=== PATIENT | male | born 1955 | race Two or more races ===

== ENCOUNTER 2023-10-14 09:23 | Outpatient (AMB) | payer MEDICARE, OTHER, SELFPAY ==
--- NOTE | 2023-10-14 09:33 | A.OFFVIS_ITS ---
Intake Intake Visit Reasons: bladder mass Intake Note: NEW Patient presents today to established treatment for Bladder Mass: Meds- None Allergies to Antibiotic- No Known Allergies Blood Thinner- None Disposable Uro-G Cystoscope Cannula: Lot: [id number] Exp: 01/03/2025 Belt Changer Required: No Accompanied by: Significant Other Allergies No Known Allergies Allergy (Verified 10/14/23 09:54) HPI HPI Comments History of Present Illness Details Marc is a 68-year-old male he is referred due to gross hematuria. The patient states that he saw blood in his urine about a year ago but it went away. He saw blood again and was seen by his primary care physician, an ultrasound of the kidney and bladder was performed I have reviewed the results proximally 4 cm peripherally calcified bladder mass. He was referred for further evaluation. The patient denies past nicotine use. I have discussed office cystoscopy today consent obtained Cystoscopy findings: Bladder mass with necrotic changes noted. [facility] Medical History (Updated 10/16/23 @ 16:09 by Bull Gonzales MD) History of retinitis pigmentosa Hyperplastic colon polyp Bladder mass Surgical History (Updated 10/14/23 @ 09:53 by FRANCESCA Hope) Hx of colonoscopy Family History (Updated 10/14/23 @ 09:49 by FRANCESCA Hope) Father Family history of prostate cancer Lung cancer Mother No problems noted. Social History (Updated 10/14/23 @ 09:49 by FRANCESCA Hope) Alcohol intake: current Alcohol intake frequency: holidays/special occasions only Patient Tobacco Use Status: Never used Tobacco Review of Systems Const All systems reviewed & are unremarkable except as noted in HPI and below Reports no additional complaints Eyes Reports no additional complaints ENT Reports no additional complaints Card Denies dyspnea Resp Denies cough and Denies dyspnea GI Reports no additional complaints Musc Reports no additional complaints Skin/Breast Denies rash and Denies unusual bruising Neuro Reports no additional complaints Psych Reports no additional complaints Endo Reports no additional complaints Wilmer/Lymph Reports no additional complaints Aller/Immun Reports no additional complaints Physical Exam Const General: healthy appearing, no acute distress and well developed Orientation/consciousness: patient oriented x3 HEENT Head: Yes normocephalic and Yes atraumatic Eyes Conjunctivae: conjunctivae normal Neck Neck: Yes normal visual inspection Chest Chest palpation & inspection: normal inspection of the chest Resp Effort & Inspection: normal respiratory effort Cardio Rate: regular rate GI Inspection: Yes normal to inspection Palpation (GI): Soft to palpation Penis: normal penis Scrotum: scrotum normal Skin General skin exam: no rashes or lesions noted Neuro General: patient oriented x3 Extrem General: No pedal edema Psych Appearance: grossly normal Affect: normal affect Office Procedures Cystoscopy Consent Discussed risk and benefit or proposed procedure with the patient. Information consent for procedure given to the patient. Discussed technical aspects, risks, benefits and alternatives in full. Addressed all of the patient's questions and concerns regarding the procedure. The patient demonstrated knowledge and understanding. They wish to proceed with this procedure. Preparation The patient was prepped in the usual manner. A high school mathematics teacher was present and in the room. Genitalia was prepped with betadine solution in a sterile manner. Lidocaine Jelly 2% was placed into the urethra and 16Fr flexible Olympus cystoscope was inserted into the meatus after adequate lubrication. Procedure Time out per protocol performed. Bladder Inspection Bladder Inspection: The bladder was inspected in its entirety with utilization retroflexion displaying: Tumor(s): 3-5 cm necrotic appearing bladder tumor Trabeculation: N/A Mucosal Erthema: Significant mucosal erythema not visualized at the time of this cystoscopy Orifices: normal shape and position Urethra: normal Cystoscopy findings: prostatic urethra non obstructive, bulbous urethra WNL, 3-5 cm necrotic appearing bladder tumor [id number] DISPOSABLE SCOPE URO-G FLEXIBLE SCOPE Procedure code (CPT) selection complete Office Meds lidocaine HCl 2 % mucosal jelly in applicator Performing Provider: Bull Gonzales MD [facility] Administered by: Rupert Laureano LPN on 10/14/23 10:11 Dose Route Admin Location Dispensed Lot Number Expiration Date [facility] Assistant Account Manager 10 mL intra-urethral 20 mL naproxen 500 mg tablet Performing Provider: Bull Gonzales MD Performing Location[facility] Administered by: Rupert Laureano LPN on 10/14/23 10:11 Dose Route Admin Location Dispensed Lot Number Expiration Date NDC Assistant Account Manager 500 mg PO 1 tab ciprofloxacin HCl 500 mg tablet Performing Provider: Bull Gonzales MD Performing Location: [facility] Administered by: Rupert Laureano LPN on 10/14/23 10:11 Dose Route Admin Location Dispensed Lot Number Expiration Date NDC Assistant Account Manager 500 mg PO 1 tab Results AMB Urinalysis, Automated UA Leukoctes 0 Chau/uL Last Edit by FRANCESCA Hope on 10/14/23 09:48 UA Nitrite Negative Last Edit by FRANCESCA Hope on 10/14/23 09:48 UA Urobilinogen 0.2 mg/dL Last Edit by FRANCESCA Hope on 10/14/23 09:4 8 UA Protein 30 mg/dL Last Edit by FRANCESCA Hope on 10/14/23 09:48 1+ Doe Ritchie 10/14/23 09:48 UA pH 6.0 Last Edit by FRANCESCA Hope on 10/14/23 09:48 UA Blood 200 Sudeep/uL Last Edit by FRANCESCA Hope on 10/14/23 09:48 3+ Doe Ritchie 10/14/23 09:48 UA Specific [place] 1.020 Last Edit by FRANCESCA Hope on 10/14/23 09: 48 UA Ketone Negative Last Edit by FRANCESCA Hope on 10/14/23 09:48 UA Bilirubin 0 mg/dL Last Edit by FRANCESCA Hope on 10/14/23 09:48 UA Glucose 0 mg/dL Last Edit by FRANCESCA Hope on 10/14/23 09:48 Results Reviewed Results Reviewed: Laboratory Last Values Urine pH (Auto) 6.0 10/14/23 09:45 Specific [place] (Auto) 1.020 10/14/23 09:45 Urine Protein (Auto) 30 mg/dL 10/14/23 09:45 Glucose (UA)(Auto) 0 mg/dL 10/14/23 09:45 Urine Ketones (Auto) Negative 10/14/23 09:45 Urine Blood (Auto) 200 Sudeep/uL 10/14/23 09:45 Urine Nitrite (Auto) Negative 10/14/23 09:45 Urine Bilirubin (Auto) 0 mg/dL 10/14/23 09:45 Urine Urobilinogen (Auto) 0.2 mg/dL 10/14/23 09:45 Leukocyte Esterase (Auto) 0 Chau/uL 10/14/23 09:45 Assessment & Plan Assessment & Plan (1) Bladder mass: Code(s): N32.89 - Other specified disorders of bladder (2) Gross hematuria: Code(s): R31.0 - Gross hematuria Plan CT abdomen and pelvis with and without IV contrast Urine for cytology Cystoscopy TURBT, random bladder biopsies. Orders: Orders Urine Cytology 10/14/23 R31.9 - Hematuria, unspecified AMB Urinalysis Automated 10/14/23 Z13.9 - Encounter for screening, unspecified AMB Cystoscopy 10/14/23 N32.89 - Other specified disorders of bladder CT abdomen pelvis wo/w IV con 10/14/23 N32.89 - Other specified disorders of bladder Patient Instructions: The patient had an opportunity to ask questions regarding treatment plan. All questions were answered. Imaging, Laboratory studies and physical exam results were discussed and reviewed in detail. No major barriers to understanding were identified. The patient expressed understanding and agreement with the above tr eatment plan. The patient is aware they should contact our office by phone for worsening of their current condition or the appearance of new symptoms. Compliance is encouraged with any medications and followup testing that is ordered. It is a privilege to be allowed the opportunity to participate in the urologic care of your patient. If you have any questions or concerns regarding treatment for the above conditions please do not hesitate to contact me. The office telephone contact is [phone]. This note is constructed in part using voice recognition software. While every effort has been made to ensure accuracy sugar drier errors may have been included. Yours sincerely, Bull Gonzales MD Coding Level of Care Code New Pt Level 4 (45881) Diagnoses Bladder mass N32.89 Gross hematuria R31.0 CPT Codes Cystoscopy - CPT: 88421-[id number] ([id number])
== END 2023-10-14 10:50 | disposition home or self-care (01) ==
PROVIDERS: PCP Nurse Practitioner Family; Visit Provider Urology
DX: N32.89 Other specified disorders of bladder (principal); Z13.9 Encounter for screening, unspecified
CPT/HCPCS: 52000; 99204

== ENCOUNTER 2023-10-14 09:23 | Outpatient (REF) | payer MEDICARE, OTHER, SELFPAY ==
[2023-10-14 16:19] LABS: Urine Cytology See Pathology rpt
== END 2023-10-14 09:24 | disposition home or self-care (01) ==
LOC: HO.LAB 09:23
PROVIDERS: PCP Nurse Practitioner Family; Visit Provider Urology
DX: R31.0 Gross hematuria (principal); N32.89 Other specified disorders of bladder
CPT/HCPCS: 52000; 81003; 88112; 99202

== ENCOUNTER 2023-10-25 13:18 | Outpatient (REF) | payer MEDICARE, OTHER, SELFPAY ==
--- NOTE | ~2023-10-25 | CT_ITS ---
EXAMINATION: CT ABDOMEN AND PELVIS WITHOUT AND WITH CONTRAST CLINICAL INFORMATION: Bladder mass. COMPARISON: None available. TECHNIQUE: Multidetector volumetric imaging was performed of the abdomen and pelvis before and after the IV administration of 85 mL of Omnipaque 350 intravenous contrast. Sagittal and coronal reformatted images were obtained on the technologist's workstation. This CT examination was performed using dose optimization techniques as appropriate, variously including the following: *Automated exposure control *Adjustment of mA and/or kV according to patient size (this includes techniques or standardized protocols for targeted exams where dose is matched to indication/reason for exam; i.e. extremities or head) *Use of iterative reconstruction technique DLP: 1193 mGy-cm FINDINGS: LUNG BASES: No pleural or pericardial effusion. LIVER, GALLBLADDER, AND BILIARY TREE: The liver is normal in size and contour. No focal hepatic lesion or biliary ductal dilatation is present. The gallbladder is unremarkable with no evidence of radiopaque gallstones, gallbladder wall thickening, or obvious pericholecystic inflammatory changes. PANCREAS: No ductal dilatation. SPLEEN: Not enlarged. ADRENAL GLANDS: No adrenal mass. KIDNEYS AND URETERS: The kidneys are symmetric in size and enhancement. No hydronephrosis. No perinephric stranding. BLADDER: Peripherally calcified solid enhancing mass measuring 4.2 x 3.2 x 3.1 cm arising from the right lateral bladder wall. Right lateral bladder wall thickening. GASTROINTESTINAL TRACT: Small and large bowel loops are of normal caliber. No small bowel obstruction. Appendix is within normal limits. ABDOMINAL WALL: Bilateral fat-containing inguinal hernias. LYMPH NODES: No bulky lymphadenopathy. VASCULAR: Unremarkable PELVIC VISCERA: Prostate gland is mildly enlarged. There is slight asymmetric enlargement of the left seminal vesicle. OSSEOUS STRUCTURES: No destructive bone lesions. CT/CT abdomen pelvis wo/w IV con IMPRESSION: 4.2 x 3.2 x 3.1 cm peripherally calcified solid enhancing bladder mass arising from the right lateral bladder wall. There is right lateral bladder wall thickening. No hydronephrosis.
[2023-10-25] MEDS: iohexoL 350 MG/ML 75 ML INFUS..BTL 85 ML IV (14:15)
[2023-10-26 08:22] LABS: Creatinine POC 0.7 mg/dL (0.5-1.4); GFR POC > 60
== END 2023-10-25 13:19 | disposition home or self-care (01) ==
LOC: HO.CT 13:18
PROVIDERS: Visit Provider Urology
DX: N32.89 Other specified disorders of bladder (principal)
CPT/HCPCS: 74178; 82565; Q9967

== ENCOUNTER 2023-10-27 14:44 | Outpatient (AMB) | payer MEDICARE, OTHER, SELFPAY ==
--- NOTE | 2023-10-27 14:45 | A.OFFVIS_ITS ---
Intake Intake Visit Reasons: 3w/CT results Intake Note: Patient presents today via phone for CT scan results: Meds- None Allergies to Antibiotic- No Known Allergies Blood Thinner- None Entertainment Musician Required: No Accompanied by: Self / Same As Patient Allergies No Known Allergies Allergy (Verified 10/27/23 14:46) HPI HPI Comments History of Present Illness Details 10/27/23-- Telehealth visit to discuss CT scan results. Video attempted. Marc was seen last on 10/14/23 for cystoscopy, large bladder tumor was visualized. I have reviewed imaging, Kidneys WNL, no new findings, no hydronephrosis. urine cytology sent on 10/14/23 - path - results- atypical cells. Cont with plan for cysto/TURBT. Review of chart 10/14/23--Marc is a 68-year-old male he i s referred due to gross hematuria. The patient states that he saw blood in his urine about a year ago but it went away. He saw blood again and was seen by his primary care physician, an ultrasound of the kidney and bladder was performed I have reviewed the results proximally 4 cm peripherally calcified bladder mass. He was referred for further evaluation. The patient denies past nicotine use. I have discussed office cystoscopy today consent obtained Cystoscopy findings: Bladder mass with necrotic changes noted. [facility] Medical History (Updated 11/05/23 @ 12:01 by Angy Goyal RN) Osteoarthritis History of retinitis pigmentosa Hyperplastic colon polyp Bladder mass Surgical History (Updated 10/14/23 @ 09:53 by FRANCESCA Hope) Hx of colonoscopy Family History (Updated 10/14/23 @ 09:49 by FRANCESCA Hope) Father Family history of prostate cancer Lung cancer Mother No problems noted. Social History (Updated 11/05/23 @ 12:00 by Angy Goyal RN) Alcohol intake: current Alcohol intake frequency: holidays/special occasions only Patient Tobacco Use Status: Never used Tobacco Use of substances other than those prescribed or required for medical reasons: No Review of Systems Const All systems reviewed & are unremarkable except as noted in HPI and below Reports no additional complaints Eyes Reports no additional complaints ENT Reports no additional complaints Card Denies dyspnea Resp Denies cough and Denies dyspnea GI Reports no additional complaints Musc Reports no additional complaints Skin/Breast Denies rash and Denies unusual bruising Neuro Reports no additional complaints Psych Reports no additional complaints Endo Reports no additional complaints Wilmer/Lymph Reports no additional complaints Aller/Immun Reports no additional complaints Results Reviewed Results Reviewed: Date of Service: 10/25/23 EXAMINATION: CT ABDOMEN AND PELVIS WITHOUT AND WITH CONTRAST CLINICAL INFORMATION: Bladder mass. COMPARISON: None available. TECHNIQUE: Multidetector volumetric imaging was performed of the abdomen and pelvis before and after the IV administration of 85 mL of Omnipaque 350 intravenous contrast. Sagittal and coronal reformatted images were obtained on the technologist's workstation. This CT examination was performed using dose optimization techniques as appropriate, variously including the following: *Automated exposure control *Adjustment of mA and/or kV according to patient size (this includes techniques or standardized protocols for targeted exams where dose is matched to indication/reason for exam; i.e. extremities or head) *Use of iterative reconstruction technique DLP: 1193 mGy-cm FINDINGS: LUNG BASES: No pleural or pericardial effusion. LIVER, GALLBLADDER, AND BILIARY TREE: The liver is normal in size and contour. No focal hepatic lesion or biliary ductal dilatation is present. The gallbladder is unremarkable with no evidence of radiopaque gallstones, gallbladder wall thickening, or obvious pericholecystic inflammatory changes. PANCREAS: No ductal dilatation. SPLEEN: Not enlarged. ADRENAL GLANDS: No adrenal mass. KIDNEYS AND URETERS: The kidneys are symmetric in size and enhancement. No hydronephrosis. No perinephric stranding. BLADDER: Peripherally calcified solid enhancing mass measuring 4.2 x 3.2 x 3.1 cm arising from the right lateral bladder wall. Right lateral bladder wall thickening. GASTROINTESTINAL TRACT: Small and large bowel loops are of normal caliber. No small bowel obstruction. Appendix is within normal limits. ABDOMINAL WALL: Bilateral fat-containing inguinal hernias. LYMPH NODES: No bulky lymphadenopathy. VASCULAR: Unremarkable PELVIC VISCERA: Prostate gland is mildly enlarged. There is slight asymmetric enlargement of the left seminal vesicle. OSSEOUS STRUCTURES: No destructive bone lesions. IMPRESSION: 4.2 x 3.2 x 3.1 cm peripherally calcified solid enhancing bladder mass arising from the right lateral bladder wall. There is right lateral bladder wall thickening. No hydronephrosis. Assessment & Plan Assessment & Plan (1) Bladder mass: Code(s): N32.89 - Other specified disorders of bladder (2) Gross hematuria: Code(s): R31.0 - Gross hematuria Plan Cystoscopy TURBT, random bladder biopsies. Patient Instructions: The patient had an opportunity to ask questions regarding treatment plan. All questions were answered. Imaging, Laboratory studies and physical exam results were discussed and reviewed in detail. No major barriers to understanding were identified. The patient expressed understanding and agreement with the above treatment plan. The patient is aware they should contact our office by phone for worsening of their current condition or the appearance of new symptoms. Compliance is encouraged with any medications and followup testing that is ordered. It is a privilege to be allowed the opportunity to participate in the urologic care of your patient. If you have any questions or concerns regarding treatment for the above conditions please do not hesitate to contact me. The office telephone contact is [phone]. This note is constructed in part using voice recognition software. While every effort has been made to ensure accuracy oil and gas superintendent errors may have been included. Yours sincerely, Bull Gonzales MD Telehealth Telehealth Location of provider rendering services: practice address Location of patient: address on file Patient Identification confirmed using: Name, : Yes Telehealth method: voice only Patient verbally consented to treatment: Yes Patient verbally consented to billing insurance company: Yes Patient informed of any privacy concerns related to visit: Yes Minutes spent on Phone/Video with Pt.: 15 Coding Level of Care Code Tele Est Pt Level 3 (55906) Diagnoses Bladder mass N32.89 Gross hematuria R31.0
== END 2023-10-27 15:18 | disposition home or self-care (01) ==
LOC: HO.HUSH 14:44
PROVIDERS: PCP Nurse Practitioner Family; Visit Provider Urology
DX: N32.89 Other specified disorders of bladder (principal); R31.0 Gross hematuria
CPT/HCPCS: 99442

== ENCOUNTER → 2023-10-27 14:44 | Outpatient (BNVA) | payer MEDICARE, OTHER, SELFPAY | PROVIDERS: PCP Nurse Practitioner Family; Visit Provider Urology ==

== ENCOUNTER 2023-11-09 05:55 | Day surgery (SDC) | payer MEDICARE, OTHER, SELFPAY ==
[2023-11-05 12:00] VITALS: BMI 34.2
--- NOTE | 2023-11-08 09:02 | P.CONAN_ITS ---
Documented by User: Marisela Campbell NP 11/08/23 09:02 HPI - Anesthesia Eval Consult details Narrative: 68yo M for TUR Bladder Tumor PMFSH Active Problems Active Problems: All Active Problems (Updated 11/05/23 @ 12:01 by Angy Goyal RN) Gross hematuria (Acute) Bladder mass (Acute) Past Medical History Medical History Osteoarthritis History of retinitis pigmentosa Hyperplastic colon polyp Bladder mass Family History Family History Father Family history of prostate cancer Lung cancer Mother No problems noted. Surgical History Surgical History Hx of colonoscopy Social History Social History Alcohol intake: current Alcohol intake frequency: holidays/special occasions only Patient Tobacco Use Status: Never used Tobacco Are you DNR?: No Advance Directives: No Advance Directives Information Provided: Yes Nutrition Risks: No Nutritional Risk Meds Allergies Allergy/AdvReac Type Severity Reaction Status Date / Time No Known Allergies Allergy Verified 11/09/23 06:10 Home Medications Medication Instructions Recorded Confirmed Last Taken Type multivitamin 1 tab PO DAILY 10/14/23 11/05/23 Unknown History vitamin A 2,400 mcg capsule 2,400 mcg PO DAILY 10/14/23 11/05/23 Unknown History Exam Height,Weight and Vital Signs: Height 5 ft 5.25 in Weight 94.064 kg Assessment and Plan Assessment Anesthesia Assessment: Chart Reviewed Documented by User: Adeola Vigil MD 11/09/23 07:34 PMFSH Past Medical History Medical History Osteoarthritis History of retinitis pigmentosa Hyperplastic colon polyp Bladder mass Family History Family History Father Family history of prostate cancer Lung cancer Mother No problems noted. Family history of problems with anesthesia: No Surgical History Surgical History Hx of colonoscopy History of Problems with Anesthesia: No Social History Social History Alcohol intake: current Alcohol intake frequency: holidays/special occasions only Patient Tobacco Use Status: Never used Tobacco Are you DNR?: No Advance Directives: No Advance Directives Information Provided: Yes Nutrition Risks: No Nutritional Risk Meds Allergies Allergy/AdvReac Type Severity Reaction Status Date / Time No Known Allergies Allergy Verified 11/09/23 06:10 Home Medications Medication Instructions Recorded Confirmed Last Taken Type multivitamin 1 tab PO DAILY 10/14/23 11/05/23 Unknown History vitamin A 2,400 mcg capsule 2,400 mcg PO DAILY 10/14/23 11/05/23 Unknown History Exam Airway Mallampati Class: III TM Dist: >3cm Neck ROM: Limited Heart: rrrr Lungs: cta Assessment and Plan Assessment Anesthesia Assessment: Anesthesia Plan Discussed Final Anesthetic Review Family History of Problems with Anesthesia: No History of Problems with Anesthesia: No NPO: Yes ASA Class: II Final Preanesthetic Review: No Changes in Pt Med Stat, Meds/Allgs Chart Revie wed, Consent Obtained/Reviewed and Anes Risks/Benef Reviewed Patient Risk: Low Procedure Risk: Low Anesthetic Plan Anesthetic Plan: GA Disposition: Standard PACU
[2023-11-09] VITALS (8 sets, daily range): BP systolic 109–150; BP diastolic 58–84; PULSE 53–70; RESP 16–18; TEMP 36.2–36.7; O2SAT 93–100; BMI 34.5
[2023-11-09] MEDS: Lactated Ringers 1,000 ML 100 ML IVCONT (06:12)
--- NOTE | 2023-11-09 07:17 | MHC.SHP ---
Pre-Procedural Eval Section A - 24 Hr Update-Section A only Date of Service: 11/09/23 The patient is an INPATIENT: No The patient has been examined within 24 hours of the surgical procedure. The History & Physical has been completed within 30 days and I have reviewed it.: Yes Section B - Complete if H&P > 30 days Chief Complaint: Other specified disorders of bladder Allergies: Allergies Allergy/AdvReac Type Severity Reaction Status Date / Time No Known Allergies Allergy Verified 11/09/23 06:10 Plan Diagnosis/Plan: Unchanged I have reviewed the history and physical and performed a pertinent physical examination on my patient. No changes have occurred unless specified. Cysto/TURBT. Discussed risks to include but not limited to, blood in the urine, burning with urination, urgency. Time Spent With Patient Time: Total time managing care of this patient today ____ minutes.
--- NOTE | 2023-11-09 09:25 | P.OP_ITS ---
Operative Note Operative Note Date of Service: 11/09/23 Narrative: PREOP DIAGNOSIS: Bladder tumor POSTOP DIAGNOSIS: Bladder tumor PROCEDURE: CYSTOSCOPY TRANSURETHRAL RESECTION OF BLADDER TUMOR, FULGURATION Anesthesia: General Surgeon Dr. Bull Gonzales Findings: Necrotic bladder tumor >5 cm, right lateral wall Details of procedure: The patient was brought into the operating room placed on the OR table in supine position. 2 g of Ancef IV. General anesthesia was administered. The patient was repositioned into lithotomy position, prepped and draped in the usual sterile fashion. Time-out was done per protocol. 2 urojet placed. The 22 Japanese cystoscope was passed transurethrally into the bladder. The bulbous urethra was within normal limits the prostatic urethra was nonobstructive. There was a large necrotic bladder tumor right lateral wall towards the dome on the right side. Random bladder biopsies were done at the posterior wall and left lateral wall. The cystoscope was removed. The 24 Japanese resectoscope was passed transurethrally into the bladder. Using the loop working element the biopsied areas were cauterized. The loop working instrument was used to resect the bladder tumor on the right side, muscle was visualized without evidence of perforation, the loop was also used to fulgurate the base of the bladder tumor. Once there was good hemostasis the resectoscope was removed. An [address] catheter was passed without difficulty. 20 mL sterile water placed into the balloon. The patient was brought out of anesthesia and taken to recovery in stable condition. Complications: None Drains: [address] 30 cc balloon
[2023-11-09] MEDS: Phenazopyridine HCL 200 MG TABLET PO (09:40)
== END 2023-11-09 10:58 | disposition home or self-care (01) ==
PROVIDERS: PCP Nurse Practitioner Family; Visit Provider Urology
PROC: 0TBB8ZZ Excision of Bladder, Via Natural or Artificial Opening Endoscopic (ICD-10-PCS; CPT 52235; principal; 2023-11-09 07:30)
DX: C67.2 Malignant neoplasm of lateral wall of bladder (principal); R31.0 Gross hematuria; Z79.899 Other long term (current) drug therapy
CPT/HCPCS: 52235; 88305; 88307; J0131; J0690; J2704; J3010

== ENCOUNTER → 2023-11-09 05:55 | Outpatient (BNV) | payer MEDICARE, OTHER, SELFPAY | PROVIDERS: PCP Nurse Practitioner Family; Visit Provider Urology | DX: N32.89 Other specified disorders of bladder (principal) | CPT/HCPCS: 52235 ==

== ENCOUNTER → 2023-11-12 09:13 | Outpatient (BNVA) | payer MEDICARE, OTHER, SELFPAY | PROVIDERS: PCP Nurse Practitioner Family; Visit Provider Urology ==

== ENCOUNTER 2023-11-26 14:13 | Outpatient (AMB) | payer MEDICARE, OTHER, SELFPAY ==
--- NOTE | 2023-11-26 14:16 | A.OFFVIS_ITS ---
Intake Intake Visit Reasons: TURBT follow up Intake Note: Patient presents today for TURBT follow-up: Meds- Azo Allergies to Antibiotic- No Known Allergies Blood Thinner- None Palliative Medicine Physician Required: No Accompanied by: Significant Other Allergies No Known Allergies Allergy (Verified 11/26/23 14:21) HPI HPI Comments History of Present Illness Details 11/26/2023-- Marc is here with his [facility] post TURBT 11/09/2023. He states he is doing well. He is voiding without difficulty. I have reviewed the pathology results. 11/09/23---Path results: Bladder, right lateral wall towards dome, transurethral resection: - High-grade urothelial carcinoma, invasive into lamina propria. - Muscularis propria present. Discussed high-grade urothelial carcinoma fire chance for recurrence. I have discussed further evaluation with PET-CT. Discussed options for bladder installations. [place] [facility] Will send a referral to Dr. Smith at [facility] to see if BCG is available there otherwise will arrange for alternative chemo therapy bladder instillation. Discussed that in the case of proceeding with radical cystectomy that Dr. Smith would be able to further discuss this treatment management with them. Review of chart: 10/27/23-- Telehealth visit to discuss CT scan results. Video attempted. Marc was seen last on 10/14/23 for cystoscopy, large bladder tumor was visualized. I have reviewed imaging, Kidneys WNL, no new findings, no hydronephrosis. urine cytology sent on 10/14/23 - path - results- atypical cells. Cont with plan for cysto/TURBT. 10/14/23--Marc is a 68-year-old male he i s referred due to gross hematuria. The patient states that he saw blood in his urine about a year ago but it went away. He saw blood again and was seen by his primary care physician, an ultrasound of the kidney and bladder was performed I have reviewed the results proximally 4 cm peripherally calcified bladder mass. He was referred for further evaluation. The patient denies past nicotine use. I have discussed office cystoscopy today consent obtained Cystoscopy findings: Bladder mass with necrotic changes noted. 11/26/2023--see discussion above. [facility] Medical History Osteoarthritis History of retinitis pigmentosa Hyperplastic colon polyp Bladder mass Surgical History Hx of colonoscopy Family History Father Family history of prostate cancer Lung cancer Mother No problems noted. Social History Alcohol intake: current Alcohol intake frequency: holidays/special occasions only Patient Tobacco Use Status: Never used Tobacco Review of Systems Const All systems reviewed & are unremarkable except as noted in HPI and below Reports no additional complaints Eyes Reports no additional complaints ENT Reports no additional complaints Card Reports no additional complaints Resp Reports no additional complaints GI Reports no additional complaints Reports as per HPI Musc Reports no additional complaints Skin/Breast Reports system reviewed and no additional complaints, except as documented Neuro Reports no additional complaints Psych Reports no additional complaints Endo Reports no additional complaints Wilmer/Lymph Reports no additional complaints Aller/Immun Reports no additional complaints Results AMB Urinalysis, Automated UA Leukoctes 15 Chau/uL Last Edit by FRANCESCA Hope on 11/26/23 14:27 UA Nitrite Negative Last Edit by FRANCESCA Hope on 11/26/23 14:27 UA Urobilinogen 0.2 mg/dL Last Edit by FRANCESCA Hope on 11/26/23 14:2 7 UA Protein 15 mg/dL Last Edit by FRANCESCA Hope on 11/26/23 14:27 UA pH 6.0 Last Edit by FRANCESCA Hope on 11/26/23 14:27 UA Blood 25 Sudeep/uL Last Edit by FRANCESCA Hope on 11/26/23 14:27 1+ Doe Ritchie 11/26/23 14:27 UA Specific [place] 1.020 Last Edit by FRANCESCA Hope on 11/26/23 14: 27 UA Ketone Negative Last Edit by FRANCESCA Hope on 11/26/23 14:27 UA Bilirubin 0 mg/dL Last Edit by FRANCESCA Hope on 11/26/23 14:27 UA Glucose 0 mg/dL Last Edit by FRANCESCA Hope on 11/26/23 14:27 Results Reviewed Results Reviewed: Laboratory Last Values Urine pH (Auto) 6.0 11/26/23 14:16 Specific [place] (Auto) 1.020 11/26/23 14:16 Urine Protein (Auto) 15 mg/dL 11/26/23 14:16 Glucose (UA)(Auto) 0 mg/dL 11/26/23 14:16 Urine Ketones (Auto) Negative 11/26/23 14:16 Urine Blood (Auto) 25 Sudeep/uL 11/26/23 14:16 Urine Nitrite (Auto) Negative 11/26/23 14:16 Urine Bilirubin (Auto) 0 mg/dL 11/26/23 14:16 Urine Urobilinogen (Auto) 0.2 mg/dL 11/26/23 14:16 Leukocyte Esterase (Auto) 15 Chau/uL 11/26/23 14:16 Collected: 11/09/23 Location: [facility] Received: 11/09/23 Diagnosis A. Bladder, posterior wall, biopsy: Benign urothelial mucosa; muscularis propria present. B. Bladder, left lateral wall, biopsy: Benign urothelial mucosa; muscularis propria present. C. Bladder, right lateral wall towards dome, transurethral resection: - High-grade urothelial carcinoma, invasive into lamina propria. - Muscularis propria present. Bladder, transurethral resection/biopsy Procedure: Transurethral resection Tumor site: Right lateral wall towards dome Histologic type: Urothelial carcinoma Histologic grade: High-grade Muscularis propria: Present Extent of invasion: Lamina propria invasion Lymphovascular invasion: Not identified Date of Service: 10/25/23 EXAMINATION: CT ABDOMEN AND PELVIS WITHOUT AND WITH CONTRAST CLINICAL INFORMATION: Bladder mass. COMPARISON: None available. TECHNIQUE: Multidetector volumetric imaging was performed of the abdomen and pelvis before and after the IV administration of 85 mL of Omnipaque 350 intravenous contrast. Sagittal and coronal reformatted images were obtained on the technologist's workstation. This CT examination was performed using dose optimization techniques as appropriate, variously including the following: *Automated exposure control *Adjustment of mA and/or kV according to patient size (this includes techniques or standardized protocols for targeted exams where dose is matched to indication/reason for exam; i.e. extremities or head) *Use of iterative reconstruction technique DLP: 1193 mGy-cm FINDINGS: LUNG BASES: No pleural or pericardial effusion. LIVER, GALLBLADDER, AND BILIARY TREE: The liver is normal in size and contour. No focal hepatic lesion or biliary ductal dilatation is present. The gallbladder is unremarkable with no evidence of radiopaque gallstones, gallbladder wall thickening, or obvious pericholecystic inflammatory changes. PANCREAS: No ductal dilatation. SPLEEN: Not enlarged. ADRENAL GLANDS: No adrenal mass. KIDNEYS AND URETERS: The kidneys are symmetric in size and enhancement. No hydronephrosis. No perinephric stranding. BLADDER: Peripherally calcified solid enhancing mass measuring 4.2 x 3.2 x 3.1 cm arising from the right lateral bladder wall. Right lateral bladder wall thickening. GASTROINTESTINAL TRACT: Small and large bowel loops are of normal caliber. No small bowel obstruction. Appendix is within normal limits. ABDOMINAL WALL: Bilateral fat-containing inguinal hernias. LYMPH NODES: No bulky lymphadenopathy. VASCULAR: Unremarkable PELVIC VISCERA: Prostate gland is mildly enlarged. There is slight asymmetric enlargement of the left seminal vesicle. OSSEOUS STRUCTURES: No destructive bone lesions. IMPRESSION: 4.2 x 3.2 x 3.1 cm peripherally calcified solid enhancing bladder mass arising from the right lateral bladder wall. There is right lateral bladder wall thickening. No hydronephrosis. Assessment & Plan Assessment & Plan (1) Bladder cancer: Code(s): C67.9 - Malignant neoplasm of bladder, unspecified Plan PET-CT. Discussed options for bladder instillations. [place] not available [place] [facility] Will send a referral to Dr. Smith at [facility] to see if BCG is available there otherwise will arrange for alternative chemo therapy bladder instillation. Discussed that in the case of proceeding with radical cystectomy that Dr. Smith would be able to further discuss this treatment management with them. Orders: Orders AMB Urinalysis Automated 11/26/23 Z13.9 - Encounter for screening, unspecified PET CT fusion whole body 11/26/23 C67.9 - Malignant neoplasm of bladder, unspecified Patient Instructions: The patient had an opportunity to ask questions regarding treatment plan. All questions were answered. Imaging, Laboratory studies and physical exam results were discussed and reviewed in detail. No major barriers to understanding were identified. The patient expressed understanding and agreement with the above treatment plan. The patient is aware they should contact our office by phone for worsening of their current condition or the appearance of new symptoms. Compliance is encouraged with any medications and followup testing that is ordered. It is a privilege to be allowed the opportunity to participate in the urologic care of your patient. If you have any questions or concerns regarding treatment for the above conditions please do not hesitate to contact me. The office telephone contact is [phone]. This note is constructed in part using voice recognition software. While every effort has been made to ensure accuracy complementary health therapists errors may have been included. Yours sincerely, Bull Gonzales MD Coding Level of Care Code Est Pt Level 4 (26210) Diagnoses Bladder cancer C67.9
== END 2023-11-26 15:18 | disposition home or self-care (01) ==
PROVIDERS: PCP Nurse Practitioner Family; Visit Provider Urology
DX: C67.9 Malignant neoplasm of bladder, unspecified (principal)
CPT/HCPCS: 99214

== ENCOUNTER → 2023-11-26 14:13 | Outpatient (BNVA) | payer MEDICARE, OTHER, SELFPAY | PROVIDERS: PCP Nurse Practitioner Family; Visit Provider Urology | DX: C64.9 Malignant neoplasm of unspecified kidney, except renal pelvis (principal) | CPT/HCPCS: 81003; 99212 ==

== ENCOUNTER 2023-12-30 09:52 | Outpatient (AMB) | payer MEDICARE, OTHER, SELFPAY ==
--- NOTE | 2023-12-30 09:53 | MHC.OFFVIS ---
Intake Visit Reasons: discuss treatment plan/instillations Intake Note: Patient is present for telephone appointment to discuss treatment plan Allergies No Known Allergies Allergy (Verified 11/26/23 14:21) HPI Comments Details: Marc is a pleasant male. He is a patient of . He is seen for the following urologic conditions - bladder cancer high-grade T1 a Telemedicine Evaluation 15 min Consultation Doximity Sandy Video attempted Bladder cancer 11/13 high-grade T1a Initial presentation with gross hematuria Cystoscopy performed after imaging which showed 4 cm peripheral calcified bladder mass CT scan - large bladder cancer common tract findings Cytology atypical TURBT - high-grade urothelial carcinoma with T1 invasion Confirmed he is going to [place] to see Dr. Smith for repeat TURBT and BCG induction He will call when complete as would like to continue surveillance cystoscopy [facility] Medical History Osteoarthritis History of retinitis pigmentosa Hyperplastic colon polyp Bladder mass Surgical History Hx of colonoscopy Family History Father Family history of prostate cancer Lung cancer Mother No problems noted. Social History Alcohol intake: current Alcohol intake frequency: holidays/special occasions only Patient Tobacco Use Status: Never used Tobacco Review of Systems Const All systems reviewed & are unremarkable except as noted in HPI and below Reports no additional complaints Resp Reports no additional complaints GI Reports no additional complaints Reports as per HPI Musc Reports no additional complaints Physical Exam Telemedicine evaluation Appropriate responses Regular breathing rate and rhythm HEENT Head: Yes normal to inspection Ears: hearing grossly normal bilaterally Eyes General: appearance normal, both eyes and all related structures Neck Neck: Yes normal visual inspection Chest Chest palpation & inspection: normal inspection of the chest Resp Effort & Inspection: normal respiratory effort and able to speak in complete sentences Telehealth Telehealth Telehealth Platform: [email or web address] Location of provider rendering services: practice address Location of patient: address on file Patient Identification confirmed using: Name, : Yes Telehealth method: video Patient verbally consented to treatment: Yes Patient verbally consented to billing insurance company: Yes Patient informed of any privacy concerns related to visit: Yes Assessment & Plan Assessment & Plan (1) Bladder cancer: Code(s): C67.9 - Malignant neoplasm of bladder, unspecified Category: Medical Plan Upcoming repeat TURBT BCG induction Patient Instructions: Imaging studies, laboratory and physical exam results were discussed and reviewed in detail. No major barriers to patient understanding were identified. An opportunity to ask questions regarding the treatment plan was provided. All questions were answered. The patient expressed understanding and agreement with the above treatment plan. The patient is aware they should contact our office by phone for worsening of their current condition or the appearance of new urologic symptoms. Compliance is encouraged with any medications and followup testing that is ordered. It is a privilege to participate in the urologic care of your patient. If you have any questions or concerns regarding treatment for the above conditions, or other urologic issues, please do not hesitate to contact me. The office telephone contact is [phone]. This note is constructed using voice recognition software. While every effort has been made to ensure accuracy metallurgy laboratory technician errors may have been included. Yours sincerely, Dr Reggie Weldon MD, [facility] - Urology Providers of Expert, Compassionate Care for the Genitourinary System Coding Level of Care Code Tele Est Pt Level 3 (56049) Diagnoses Bladder cancer C67.9
== END 2023-12-30 10:41 | disposition home or self-care (01) ==
LOC: HO.HUSH 09:52
PROVIDERS: PCP Nurse Practitioner Family; Visit Provider Urology
DX: C67.9 Malignant neoplasm of bladder, unspecified (principal)
CPT/HCPCS: 99213

== ENCOUNTER → 2023-12-30 09:52 | Outpatient (BNVA) | payer MEDICARE, OTHER, SELFPAY | PROVIDERS: PCP Nurse Practitioner Family; Visit Provider Urology ==

== ENCOUNTER 2024-01-07 13:17 | Outpatient (AMB) | payer MEDICARE, OTHER, SELFPAY ==
--- NOTE | 2024-01-07 13:51 | MHC.OFFVIS ---
Intake Visit Reasons: cath removal Intake Note: Cath removal, follow-up Cashier Or Checker Stock Clerk Required: No Accompanied by: Self / Same As Patient Allergies No Known Allergies Allergy (Verified 01/07/24 13:52) Medication List - Last Reconciled 01/07/24 by Reggie Weldon MD multivitamin 1 tab PO DAILY phenazopyridine (Azo Urinary Pain Relief) 190 mg (2 x 95 mg) PO TID PRN vitamin A 2,400 mcg PO DAILY HPI Comments Details: Marc is a pleasant male. He is a patient of . He is seen for the following urologic conditions - bladder cancer high-grade T1 a Procedure repeated with TURBT in [place] Here for catheter removal Keep planned follow-up Bladder cancer 11/13 high-grade T1a Initial presentation with gross hematuria Cystoscopy performed after imaging which showed 4 cm peripheral calcified bladder mass CT scan - large bladder cancer common tract findings Cytology atypical TURBT - high-grade urothelial carcinoma with T1 invasion Went to [place] to see Dr. Smith for repeat TURBT and BCG induction He will call when complete as would like to continue surveillance cystoscopy [facility] Medical History Osteoarthritis History of retinitis pigmentosa Hyperplastic colon polyp Bladder mass Surgical History Hx of colonoscopy Family History Father Family history of prostate cancer Lung cancer Mother No problems noted. Social History Alcohol intake: current Alcohol intake frequency: holidays/special occasions only Patient Tobacco Use Status: Never used Tobacco Review of Systems Const Denies chills and Denies fever(s) Card Reports no additional complaints and Denies syncope Resp Denies cough GI Denies abdominal pain and Denies heartburn Reports as per HPI and Denies change in libido Neuro Denies syncope Psych Denies change in libido Endo Denies change in libido Physical Exam Const General: cooperative, healthy appearing, comfortable and no acute distress Orientation/consciousness: patient oriented x3 HEENT Face and sinus: Yes normal facial exam Mouth: moist mucous membranes Neck Neck: Yes normal visual inspection, Yes full ROM and Yes trachea midline Chest Chest palpation & inspection: normal inspection of the chest Resp Effort & Inspection: normal respiratory effort, able to speak in complete sentences and no respiratory distress GI Inspection: Yes normal to inspection Back/Spine/Pelvis Cervical Spine: normal cervical lordosis Thoracic/Lumbar Spine: thoracic and lumbar spine normal to inspection Skin General skin exam: no rashes or lesions noted Neuro General: patient oriented x3, gait normal, tone normal and moves all extremities Extrem General: Yes normal to inspection and Yes capillary refill normal Assessment & Plan Assessment & Plan (1) Bladder cancer: Code(s): C67.9 - Malignant neoplasm of bladder, unspecified Category: Medical Plan Imaging to be repeated Orders: Orders Blood Urea Nitrogen 01/07/24 C67.9 - Malignant neoplasm of bladder, unspecified Creatinine 01/07/24 C67.9 - Malignant neoplasm of bladder, unspecified CT urogram 01/07/24 C67.9 - Malignant neoplasm of bladder, unspecified Patient Instructions: Imaging studies, laboratory and physical exam results were discussed and reviewed in detail. No major barriers to patient understanding were identified. An opportunity to ask questions regarding the treatment plan was provided. All questions were answered. The patient expressed understanding and agreement with the above treatment plan. The patient is aware they should contact our office by phone for worsening of their current condition or the appearance of new urologic symptoms. Compliance is encouraged with any medications and followup testing that is ordered. It is a privilege to participate in the urologic care of your patient. If you have any questions or concerns regarding treatment for the above conditions, or other urologic issues, please do not hesitate to contact me. The office telephone contact is [phone]. This note is constructed using voice recognition software. While every effort has been made to ensure accuracy vault maker errors may have been included. Yours sincerely, Dr Reggie Weldon MD, [facility] - Urology Providers of Expert, Compassionate Care for the Genitourinary System Coding Level of Care Code Est Pt Level 3 (42715) Diagnoses Bladder cancer C67.9
== END 2024-01-07 13:55 | disposition home or self-care (01) ==
PROVIDERS: PCP Nurse Practitioner Family; Visit Provider Urology
DX: C67.9 Malignant neoplasm of bladder, unspecified (principal)
CPT/HCPCS: 99213

== ENCOUNTER → 2024-01-07 13:17 | Outpatient (BNVA) | payer MEDICARE, OTHER, SELFPAY | PROVIDERS: PCP Nurse Practitioner Family; Visit Provider Urology | DX: C67.9 Malignant neoplasm of bladder, unspecified (principal); Z46.6 Encounter for fitting and adjustment of urinary device | CPT/HCPCS: 99212 ==

== ENCOUNTER 2024-01-14 12:49 | Outpatient (AMB) | payer MEDICARE, OTHER, SELFPAY ==
--- NOTE | 2024-01-14 13:08 | A.OFFVIS_ITS ---
Intake Visit Reasons: 6w/Pet-CT Intake Note: Patient presents today for PET Scan Results: Meds- Azo Allergies to Antibiotic- No Known Allergies Blood Thinner- None Lead Engineer Required: No Accompanied by: Significant Other Allergies No Known Allergies Allergy (Verified 01/07/24 13:52) HPI Comments Details: Marc is a pleasant male. He is a patient of . He is seen for the following urologic conditions - bladder cancer high-grade T1 a PET-CT staging negative Bladder cancer 11/13 high-grade T1a Initial presentation with gross hematuria Cystoscopy performed after imaging which showed 4 cm peripheral calcified bladder mass Imaging - CT scan - large bladder cancer common tract findings - PET/CT no evidence of metastatic disease Cytology atypical TURBT - high-grade urothelial carcinoma with T1 invasion Confirmed he is going to [place] to see Dr. Smith [facility] He will call when complete as would like to continue surveillance cystoscopy [facility] Medical History Osteoarthritis History of retinitis pigmentosa Hyperplastic colon polyp Bladder mass Surgical History Hx of colonoscopy Family History Father Family history of prostate cancer Lung cancer Mother No problems noted. Social History Alcohol intake: current Alcohol intake frequency: holidays/special occasions only Patient Tobacco Use Status: Never used Tobacco Review of Systems Const Denies chills and Denies fever(s) Card Reports no additional complaints and Denies syncope Resp Denies cough GI Denies abdominal pain and Denies heartburn Reports as per HPI and Denies change in libido Neuro Denies syncope Psych Denies change in libido Endo Denies change in libido Physical Exam Const General: cooperative, healthy appearing, comfortable and no acute distress Orientation/consciousness: patient oriented x3 HEENT Face and sinus: Yes normal facial exam Mouth: moist mucous membranes Neck Neck: Yes normal visual inspection, Yes full ROM and Yes trachea midline Chest Chest palpation & inspection: normal inspection of the chest Resp Effort & Inspection: normal respiratory effort, able to speak in complete sentences and no respiratory distress GI Inspection: Yes normal to inspection Back/Spine/Pelvis Cervical Spine: normal cervical lordosis Thoracic/Lumbar Spine: thoracic and lumbar spine normal to inspection Skin General skin exam: no rashes or lesions noted Neuro General: patient oriented x3, gait normal, tone normal and moves all extremities Extrem General: Yes normal to inspection and Yes capillary refill normal Assessment & Plan Assessment & Plan (1) Bladder cancer: Code(s): C67.9 - Malignant neoplasm of bladder, unspecified Category: Medical (2) Gross hematuria: Code(s): R31.0 - Gross hematuria Category: Medical Plan He will call after dates are established Patient Instructions: Imaging studies, laboratory and physical exam results were discussed and reviewed in detail. No major barriers to patient understanding were identified. An opportunity to ask questions regarding the treatment plan was provided. All questions were answered. The patient expressed understanding and agreement with the above treatment plan. The patient is aware they should contact our office by phone for worsening of their current condition or the appearance of new urologic symptoms. Compliance is encouraged with any medications and followup testing that is ordered. It is a privilege to participate in the urologic care of your patient. If you have any questions or concerns regarding treatment for the above conditions, or other urologic issues, please do not hesitate to contact me. The office telephone contact is [phone]. This note is constructed using voice recognition software. While every effort has been made to ensure accuracy rail car repairer errors may have been included. Yours sincerely, Dr Reggie Weldon MD, [facility] - Urology Providers of Expert, Compassionate Care for the Genitourinary System Coding Level of Care Code Est Pt Level 4 (80240) Diagnoses Bladder cancer C67.9 Gross hematuria R31.0
== END 2024-01-14 13:42 | disposition home or self-care (01) ==
LOC: HO.HUSH 12:49
PROVIDERS: PCP Nurse Practitioner Family; Visit Provider Urology
DX: C67.9 Malignant neoplasm of bladder, unspecified (principal); R31.0 Gross hematuria
CPT/HCPCS: 99214

== ENCOUNTER → 2024-01-14 12:49 | Outpatient (BNVA) | payer MEDICARE, OTHER, SELFPAY | PROVIDERS: PCP Nurse Practitioner Family; Visit Provider Urology | DX: C67.9 Malignant neoplasm of bladder, unspecified (principal) | CPT/HCPCS: 99212 ==

== ENCOUNTER 2024-02-01 10:30 | Outpatient (REF) | payer MEDICARE, OTHER, SELFPAY ==
[2024-02-01 14:38] LABS: Appearance Urine Clear; Color Urine Yellow; Glucose Urine UA Negative (Negative); Leukocyte Esterase Urine Small (1+) (Negative); Nitrite Urine Negative (Negative); PH 8.5 (5.0-9.0); Specific Gravity - Urine <= 1.005 (1.005-1.025); UMIC TRIGGER UACC YES; Urine Blood Negative (Negative); Urine Ketones Negative (Negative); Urine Protein Negative (Neg-Trace)
[2024-02-01 14:52] LABS: Bacteria Urine None Seen (None Seen); Hyaline Casts Urine 0-2 /LPF (0-2); RBC Urine 0-2 /HPF (0-2); Squamous Epithelial Cell Urine 0-2 /HPF (0-2); UACC Culture Trigger YES; WBC Urine 0-5 /HPF (0-5)
== END 2024-02-01 10:31 | disposition home or self-care (01) ==
LOC: HO.LAB 10:30
PROVIDERS: Visit Provider Nurse Practitioner
DX: C67.8 Malignant neoplasm of overlapping sites of bladder (principal); R82.90 Unspecified abnormal findings in urine
CPT/HCPCS: 81001; 87086

== ENCOUNTER 2024-04-27 08:38 | Outpatient (REF) | payer MEDICARE, OTHER, SELFPAY ==
[2024-04-27 10:17] LABS: Anion Gap 12 (12-20); Blood Urea Nitrogen 14 mg/dL (9-16); Calcium 9.2 mg/dL (8.4-10.2); Carbon Dioxide 26 mmol/L (22-29); Chloride 108 mmol/L (96-108); Estimated Glomerular Filt Rate > 60; Glucose Random 97 mg/dL (60-115); Sodium 142 mmol/L (135-145)
== END 2024-04-27 08:39 | disposition home or self-care (01) ==
LOC: HO.LAB 08:38
PROVIDERS: Visit Provider Urology
DX: C67.8 Malignant neoplasm of overlapping sites of bladder (principal)
CPT/HCPCS: 36415; 80048

== ENCOUNTER 2024-05-19 08:59 | Outpatient (REF) | payer MEDICARE, OTHER, SELFPAY ==
[2024-05-19 09:52] LABS: Appearance Urine Clear; Color Urine Yellow; Glucose Urine UA Negative (Negative); Leukocyte Esterase Urine Negative (Negative); Nitrite Urine Negative (Negative); PH 7.5 (5.0-9.0); Specific Gravity - Urine 1.015 (1.005-1.025); Urine Blood Negative (Negative); Urine Ketones Negative (Negative); Urine Protein Negative (Neg-Trace)
[2024-05-19 10:02] LABS: Anion Gap 8 (12-20); Blood Urea Nitrogen 14 mg/dL (9-16); Calcium 9.3 mg/dL (8.4-10.2); Carbon Dioxide 31 mmol/L (22-29); Chloride 106 mmol/L (96-108); Estimated Glomerular Filt Rate > 60; Glucose Random 103 mg/dL (60-115); Potassium 4.4 mmol/L (3.3-5.1); Sodium 141 mmol/L (135-145)
== END 2024-05-19 09:00 | disposition home or self-care (01) ==
LOC: HO.LAB 08:59
PROVIDERS: PCP Nurse Practitioner Family; Visit Provider Nurse Practitioner
DX: C67.9 Malignant neoplasm of bladder, unspecified (principal)
CPT/HCPCS: 36415; 80048; 81003